=== PATIENT | female | born 1945 | race Caucasian/White ===

== ENCOUNTER 2022-05-29 08:42 | Inpatient (IN) | payer BC, MEDICAID ==
[~2022-05-29] VITALS: Ht 157.5 cm; Wt 70.3 kg
[2022-05-29] MEDS ORDERED: SODIUM CHLORIDE 0.9% 1,000 ML IV ONE (09:30)
[2022-05-29 10:26] LABS: MEAN CORPUSCULAR HEMOGLOBIN 21.1 pg (28.0-32.0); MEAN PLATELET VOLUME 7.2 fl (7.4-10.4); PLATELET 514 x1000/uL (130-400); RED BLOOD CELL COUNT 1.89 mill/uL (4.2-5.4); RED CELL DISTRIBUTION WIDTH 21.2 % (11.6-14.6)
[2022-05-29 10:33] LABS: CHLORIDE 96 mEq/L (98-107)
[2022-05-29 10:36] LABS: HEMATOCRIT. 13.4 % (36.0-48.0)
[2022-05-29 11:22] LABS: NUCLEATED RED BLOOD CELLS 4 /100 WBC; PLATELET ESTIMATE INCREASED
[2022-05-29] MEDS ORDERED: ONDANSETRON HCL 4MG/2ML INJ IV PRN (12:45)
[2022-05-29] MEDS ORDERED: CEFTRIAXONE 1 G PREMIX 50 ML IV SCH (13:00)
[2022-05-29] MEDS: SODIUM CHLORIDE 0.9% 1,000 ML IV SCH (13:11)
[2022-05-29] MEDS: ACETAMINOPHEN 325MG TABLET PO PRN ×2 (13:11→19:11)
[2022-05-29] MEDS: PANTOPRAZOLE SODIUM 40 MG/VIAL IV SCH (14:23)
[2022-05-29] MEDS ORDERED: HYDROCODONE/ACETAMINOPHEN 5/325MG TABLET PO PRN (16:47)
[2022-05-29 18:00] VITALS: BP 130/45
[2022-05-29] MEDS ORDERED: MULT-11 (18:51)
[2022-05-29] MEDS ORDERED: ATOR-2 MT (18:55)
[2022-05-29] MEDS ORDERED: ASPI-986 MT (18:55)
[2022-05-29] MEDS ORDERED: ALD2525 MT (18:55)
[2022-05-29] MEDS ORDERED: AMLO10TA80 MT (18:55)
[2022-05-29] MEDS ORDERED: CHLO50TA MT (18:55)
[2022-05-29] MEDS ORDERED: POTA-205 MT ×2 (18:55→18:58)
[2022-05-29] MEDS ORDERED: CELE-84 MT (18:55)
[2022-05-29] MEDS ORDERED: METO-396 MT (18:56)
[2022-05-29] MEDS ORDERED: CLOP75TA33 MT (18:56)
[2022-05-29 20:00] VITALS: BP 110/54
[2022-05-29 20:10] LABS: TOTAL IRON BINDING CAPACITY 481 ug/dL (250-450)
[2022-05-29 20:53] LABS: FOLIC ACID (FOLATE) SERUM > 20.00 ng/mL (>5.38); VITAMIN B12 SERUM > 2000 pg/mL (211-911)
[2022-05-29 21:08] LABS: FERRITIN < 5 ng/mL (10-291)
[2022-05-29 21:28] LABS: HEMATOCRIT 19.6 % (36.0-48.0)
[2022-05-29 22:09] VITALS: BP 111/55
[2022-05-29 22:30] VITALS: BP 110/52
[2022-05-29 23:30] VITALS: BP 117/60
[2022-05-30] VITALS: BP 117/60
[2022-05-30 00:59] LABS: CLARITY URINE CLEAR (CLEAR); COLOR URINE YELLOW (YELLOW)
[2022-05-30 01:00] LABS: KETONES URINE NEGATIVE (NEGATIVE); LEUKOCYTE ESTERASE URINE NEGATIVE (NEGATIVE); NITRITE URINE NEGATIVE (NEGATIVE); OCCULT BLOOD URINE 3+ (NEGATIVE); PROTEIN URINE NEGATIVE (NEGATIVE); UROBILINOGEN URINE 0.2 E.U./dL (0.2-1.0)
[2022-05-30 01:03] LABS: HEMATOCRIT 22.7 % (36.0-48.0); HEMOGLOBIN 7.3 g/dL (12.0-16.0)
[2022-05-30] MEDS: SODIUM CHLORIDE 0.9% 1,000 ML IV SCH ×2 (01:07→19:06)
[2022-05-30 04:00] VITALS: BP 116/50
[2022-05-30 06:34] LABS: CHLORIDE 104 mEq/L (98-107)
[2022-05-30 07:23] LABS: BASOPHILS % 0.2 % (0.0-2.0); EOSINOPHILS % 0.1 % (0.0-5.0); HEMATOCRIT. 21.5 % (36.0-48.0); LYMPHOCYTES % 9.9 % (20.0-50.0); MEAN CORPUSCULAR HEMOGLOBIN 25.4 pg (28.0-32.0); MEAN CORPUSCULAR VOLUME 78.4 fL (81.0-99.0); MEAN PLATELET VOLUME 7.8 fl (7.4-10.4); MONOCYTES % 5.4 % (2.0-8.0); NEUTROPHILS % 84.4 % (40.0-76.0); PLATELET 344 x1000/uL (130-400); RED BLOOD CELL COUNT 2.74 mill/uL (4.2-5.4); RED CELL DISTRIBUTION WIDTH 20.1 % (11.6-14.6)
[2022-05-30 08:00] VITALS: BP 117/47
[2022-05-30] MEDS ORDERED: IRON SUCROSE COMPLEX 100 MG/5 ML ML IV SCH (09:00)
[2022-05-30] MEDS: PANTOPRAZOLE SODIUM 40 MG/VIAL IV SCH (09:29)
[2022-05-30 12:00] VITALS: BP 116/42
[2022-05-30 13:12] LABS: HEMOGLOBIN 7.1 g/dL (12.0-16.0)
[2022-05-30] MEDS ORDERED: POTASSIUM CHLORIDE 20MEQ TABLET SR PO NR (13:15)
[2022-05-30] MEDS ORDERED: POTASSIUM CHLORIDE 20MEQ TABLET SR PO ONE (13:15)
[2022-05-30 16:00] VITALS: BP 130/52
[2022-05-30] MEDS: CEFTRIAXONE 1,000 MG in DEXTROSE 5% WATER 50 ML IV SCH (17:32)
[2022-05-30 18:06] LABS: HEMATOCRIT 21.6 % (36.0-48.0); HEMOGLOBIN 7.1 g/dL (12.0-16.0)
[2022-05-30 20:00] VITALS: BP 123/54
[2022-05-31] VITALS (11 sets, daily range): BP systolic 111–139; BP diastolic 37–78
[2022-05-31 00:43] LABS: HEMATOCRIT 21.1 % (36.0-48.0)
[2022-05-31 00:51] LABS: HEMOGLOBIN 6.9 g/dL (12.0-16.0)
[2022-05-31] MEDS: SODIUM CHLORIDE 0.9% 1,000 ML IV SCH (04:49)
[2022-05-31 08:05] LABS: HEMATOCRIT 20.9 % (36.0-48.0); HEMOGLOBIN 6.8 g/dL (12.0-16.0)
[2022-05-31] MEDS: PANTOPRAZOLE SODIUM 40 MG/VIAL IV SCH (08:26)
[2022-05-31] MEDS: IRON SUCROSE COMPLEX 100 MG/5 ML ML IV SCH (08:28)
[2022-05-31 16:16] LABS: HEMATOCRIT 26.3 % (36.0-48.0); HEMOGLOBIN 8.4 g/dL (12.0-16.0)
[2022-05-31] MEDS ORDERED: BISACODYL 5MG TABLET PO ONE (16:30)
[2022-05-31] MEDS ORDERED: METOCLOPRAMIDE HCL 10MG/2ML VIAL IV SCH (16:30)
[2022-05-31] MEDS ORDERED: SORBITOL 70% SOLN 30ML PO SCH ×2 (17:00→21:00)
[2022-05-31] MEDS ORDERED: BISACODYL 5MG TABLET PO SCH (20:30)
[2022-05-31] MEDS: CEFTRIAXONE 1,000 MG in DEXTROSE 5% WATER 50 ML IV SCH (21:20)
[2022-06-01] VITALS: BP 138/90
[2022-06-01 04:00] VITALS: BP 132/76
[2022-06-01 06:04] LABS: BASOPHILS % 0.8 % (0.0-2.0); EOSINOPHILS % 1.7 % (0.0-5.0); HEMATOCRIT. 35.8 % (36.0-48.0); HEMOGLOBIN. 11.9 g/dL (12.0-16.0); LYMPHOCYTES % 11.2 % (20.0-50.0); MEAN CORPUSCULAR HEMOGLOBIN 27.4 pg (28.0-32.0); MEAN CORPUSCULAR VOLUME 82.5 fL (81.0-99.0); MEAN PLATELET VOLUME 8.1 fl (7.4-10.4); MONOCYTES % 7.2 % (2.0-8.0); NEUTROPHILS % 79.1 % (40.0-76.0); PLATELET 291 x1000/uL (130-400); RED BLOOD CELL COUNT 4.34 mill/uL (4.2-5.4); RED CELL DISTRIBUTION WIDTH 19.1 % (11.6-14.6)
[2022-06-01 06:10] LABS: PROTHROMBIN TIME 10.5 sec (9.6-11.0)
[2022-06-01 06:23] LABS: CHLORIDE 108 mEq/L (98-107)
[2022-06-01] MEDS ORDERED: SORBITOL 70% SOLN 30ML PO NR (07:15)
[2022-06-01] MEDS: SODIUM CHLORIDE 0.9% 1,000 ML IV SCH ×2 (07:25→20:45)
[2022-06-01 08:00] VITALS: BP 153/60
[2022-06-01] MEDS ORDERED: POTASSIUM CHLORIDE 20MEQ TABLET SR PO SCH (08:30)
[2022-06-01] MEDS ORDERED: POTASSIUM CHLORIDE INJ 40 MEQ in DEXT 5% WATER 250 ML IV ONE (08:30)
[2022-06-01] MEDS: IRON SUCROSE COMPLEX 100 MG/5 ML ML IV SCH (09:59)
[2022-06-01] MEDS: PANTOPRAZOLE SODIUM 40 MG/VIAL IV SCH (10:00)
[2022-06-01] MEDS: KCL 20MEQ/100ML PREMIX 100 ML IV SCH ×2 (10:14→10:30)
[2022-06-01] MEDS ORDERED: SIMETHICONE 40 MG/0.6 ML 15ML ONE (10:33)
[2022-06-01 12:00] VITALS: BP 150/58
[2022-06-01] MEDS ORDERED: FENTANYL CITRATE/PF 50MCG/ML 2ML VIAL ONE (13:51)
[2022-06-01] MEDS ORDERED: PROPOFOL 200MG/20ML VIAL IV ONE ×2 (13:51→13:54)
[2022-06-01] MEDS ORDERED: LIDOCAINE HCL 2% 5ML SYRINGE IV ONE (13:57)
[2022-06-01 16:00] VITALS: BP 145/62
[2022-06-01] MEDS ORDERED: HYDR25SU37 RC (16:05)
[2022-06-01] MEDS: CEFTRIAXONE 1,000 MG in DEXTROSE 5% WATER 50 ML IV SCH (18:23)
[2022-06-01 20:00] VITALS: BP 135/58
[2022-06-01] MEDS ORDERED: NALOXONE HCL 0.4MG/ML VIAL IV PRN (23:00)
[2022-06-02] VITALS: BP 131/65
[2022-06-02 03:23] VITALS: BP 112/59
[2022-06-02 07:14] LABS: BASOPHILS % 0.7 % (0.0-2.0); HEMATOCRIT. 34.8 % (36.0-48.0); HEMOGLOBIN. 11.5 g/dL (12.0-16.0); LYMPHOCYTES % 14.1 % (20.0-50.0); MEAN CORPUSCULAR HEMOGLOBIN 27.9 pg (28.0-32.0); MEAN CORPUSCULAR VOLUME 84.3 fL (81.0-99.0); MEAN PLATELET VOLUME 7.7 fl (7.4-10.4); MONOCYTES % 8.2 % (2.0-8.0); PLATELET 267 x1000/uL (130-400); RED BLOOD CELL COUNT 4.13 mill/uL (4.2-5.4); RED CELL DISTRIBUTION WIDTH 19.1 % (11.6-14.6)
[2022-06-02 08:00] VITALS: BP 150/57
[2022-06-02 08:09] LABS: CHLORIDE 108 mEq/L (98-107)
[2022-06-02] MEDS: PANTOPRAZOLE SODIUM 40 MG/VIAL IV SCH (10:26)
[2022-06-02] MEDS: IRON SUCROSE COMPLEX 100 MG/5 ML ML IV SCH (10:26)
[2022-06-02] MEDS: SODIUM CHLORIDE 0.9% 1,000 ML IV SCH (10:28)
[2022-06-02 12:00] VITALS: BP 135/54
[2022-06-02] MEDS ORDERED: PROT40 MT (12:33)
[2022-06-02 15:49] VITALS: BP 144/60
[2022-06-02 16:00] VITALS: BP 144/64
[2022-06-02] MEDS ORDERED: SUCRALFATE 1G TABLET PO SCH (17:10)
[2022-06-02] MEDS ORDERED: PANTOPRAZOLE SODIUM 40 MG/VIAL IV SCH (21:00)
== END 2022-06-02 16:25 | disposition home or self-care (01) | DRG 377 ==
LOC: ER 08:42 → 8WST 11:03
PROVIDERS: ADMIT Internal Medicine; ATTEND Internal Medicine
PROC: 30233N1 Transfusion of Nonautologous Red Blood Cells into Peripheral Vein, Percutaneous Approach (ICD-10-PCS; 2022-05-29)
PROC: 0DB78ZX Excision of Stomach, Pylorus, Via Natural or Artificial Opening Endoscopic, Diagnostic (ICD-10-PCS; principal; 2022-06-01)
PROC: 0DBL8ZX Excision of Transverse Colon, Via Natural or Artificial Opening Endoscopic, Diagnostic (ICD-10-PCS; 2022-06-01)
PROC: 0DBN8ZX Excision of Sigmoid Colon, Via Natural or Artificial Opening Endoscopic, Diagnostic (ICD-10-PCS; 2022-06-01)
DX: K29.61 Other gastritis with bleeding (principal); E43 Unspecified severe protein-calorie malnutrition; K55.9 Vascular disorder of intestine, unspecified; I24.8 Other forms of acute ischemic heart disease; E87.1 Hypo-osmolality and hyponatremia; K63.3 Ulcer of intestine; K25.4 Chronic or unspecified gastric ulcer with hemorrhage; D50.9 Iron deficiency anemia, unspecified; I11.9 Hypertensive heart disease without heart failure; D75.839 Thrombocytosis, unspecified; Z20.822 Contact with and (suspected) exposure to COVID-19; E78.00 Pure hypercholesterolemia, unspecified; E78.5 Hyperlipidemia, unspecified; E87.8 Other disorders of electrolyte and fluid balance, not elsewhere classified; K64.4 Residual hemorrhoidal skin tags; R55 Syncope and collapse; D72.829 Elevated white blood cell count, unspecified; R73.9 Hyperglycemia, unspecified; Z88.0 Allergy status to penicillin; Z68.28 Body mass index [BMI] 28.0-28.9, adult; Z79.02 Long term (current) use of antithrombotics/antiplatelets; Z86.73 Personal history of transient ischemic attack (TIA), and cerebral infarction without residual deficits; I25.2 Old myocardial infarction; Z90.710 Acquired absence of both cervix and uterus; Z98.2 Presence of cerebrospinal fluid drainage device
CPT/HCPCS: 36415; 71045; 80048; 80053; 81003; 82270; 82607; 82728; 82746; 83540; 83550; 84132; 84484; 85014; 85018; 85025; 85044; 86850; 86900; 86920; 87426; 88305; 93005; 99291; C1893; C9113; J0696; J2405; J2704; J2765; J3010; J3480; J3490; J7030; J7060; P9016

== ENCOUNTER 2022-07-24 03:38 | Inpatient (IN) | payer BC, MEDICAID ==
[2022-07-23] MEDS: DEXT 5%/0.9% NACL 1,000 ML IV SCH (22:00)
[~2022-07-24] VITALS: Ht 157.5 cm; Wt 68.8 kg
[~2022-07-24 03:38] MED LIST: ALD2525 MT; AMLO10TA80 MT; ASPI-986 MT; ATOR-2 MT; CHLO50TA MT; HYDR25SU37 RC; METO-396 MT; MULT-11; POTA-205 MT; PROT40 MT
[2022-07-24] MEDS ORDERED: ONDANSETRON HCL 4MG/2ML INJ IV STA (05:34)
[2022-07-24] MEDS ORDERED: PANTOPRAZOLE SODIUM 40 MG/VIAL IV ONE (05:45)
[2022-07-24] MEDS ORDERED: SODIUM CHLORIDE 0.9% 1,000 ML IV ONE (05:45)
[2022-07-24 06:42] LABS: CHLORIDE 99 mEq/L (98-107)
[2022-07-24 06:44] LABS: HEMATOCRIT. 36.8 % (36.0-48.0); HEMOGLOBIN. 12.9 g/dL (12.0-16.0); MEAN CORPUSCULAR VOLUME 85.4 fL (81.0-99.0); MEAN PLATELET VOLUME 7.9 fl (7.4-10.4); PLATELET 482 x1000/uL (130-400); RED BLOOD CELL COUNT 4.31 mill/uL (4.2-5.4); RED CELL DISTRIBUTION WIDTH 18.2 % (11.6-14.6)
[2022-07-24 08:06] LABS: PROTHROMBIN TIME 11.2 sec (9.6-11.0)
[2022-07-24 08:13] LABS: PLATELET ESTIMATE NORMAL
[2022-07-24] MEDS: PANTOPRAZOLE SODIUM 40 MG/VIAL IV SCH (17:27)
[2022-07-24 18:49] LABS: HEMATOCRIT 33.4 % (36.0-48.0); HEMOGLOBIN 11.6 g/dL (12.0-16.0)
[2022-07-24 20:00] VITALS: BP 162/70
[2022-07-24] MEDS ORDERED: HYDROCORTISONE ACETATE 25MG SUPP PR PRN (21:00)
[2022-07-24] MEDS: ATORVASTATIN CALCIUM 40MG TABLET PO SCH (21:45)
[2022-07-24] MEDS: SUCRALFATE 1 G/10 ML UDC PO SCH (21:45)
[2022-07-24 22:00] VITALS: BP 131/76
[2022-07-25] VITALS: BP 147/69
[2022-07-25] MEDS ORDERED: ESCI-7 PO (01:12)
[2022-07-25 01:40] LABS: HEMATOCRIT 32.3 % (36.0-48.0); HEMOGLOBIN 11.2 g/dL (12.0-16.0)
[2022-07-25 04:00] VITALS: BP 137/63
[2022-07-25] MEDS: PANTOPRAZOLE SODIUM 40 MG/VIAL IV SCH ×2 (05:08→17:06)
[2022-07-25 05:42] LABS: CHLORIDE 100 mEq/L (98-107)
[2022-07-25 05:55] LABS: BASOPHILS % 0.8 % (0.0-2.0); EOSINOPHILS % 1.3 % (0.0-5.0); HEMATOCRIT. 31.8 % (36.0-48.0); HEMOGLOBIN. 10.6 g/dL (12.0-16.0); LYMPHOCYTES % 16.9 % (20.0-50.0); MEAN CORPUSCULAR HEMOGLOBIN 29.3 pg (28.0-32.0); MEAN CORPUSCULAR VOLUME 87.6 fL (81.0-99.0); MEAN PLATELET VOLUME 7.4 fl (7.4-10.4); MONOCYTES % 8.2 % (2.0-8.0); NEUTROPHILS % 72.8 % (40.0-76.0); PLATELET 322 x1000/uL (130-400); RED BLOOD CELL COUNT 3.64 mill/uL (4.2-5.4); RED CELL DISTRIBUTION WIDTH 17.7 % (11.6-14.6)
[2022-07-25 08:00] VITALS: BP 114/42
[2022-07-25] MEDS: KCL 20MEQ/100ML PREMIX 100 ML IV NR ×2 (08:47→11:11)
[2022-07-25] MEDS: CITALOPRAM HYDROBROMIDE 10MG TABLET PO SCH (08:53)
[2022-07-25] MEDS: POTASSIUM CHLORIDE 20MEQ TABLET SR PO SCH (08:55)
[2022-07-25] MEDS: METOPROLOL SUCCINATE 50MG ER TABLET PO SCH (08:55)
[2022-07-25] MEDS: ATORVASTATIN CALCIUM 40MG TABLET PO SCH (08:56)
[2022-07-25] MEDS: AMLODIPINE 10MG TABLET PO SCH (08:56)
[2022-07-25] MEDS: SPIRONOLACTONE 25MG TABLET PO SCH (08:57)
[2022-07-25] MEDS: SUCRALFATE 1 G/10 ML UDC PO SCH ×4 (09:00→21:30)
[2022-07-25] MEDS: CHLORTHALIDONE 25MG TABLET PO SCH (09:05)
[2022-07-25 12:00] VITALS: BP 126/56
[2022-07-25 12:32] LABS: HEMATOCRIT 32.6 % (36.0-48.0); HEMOGLOBIN 10.9 g/dL (12.0-16.0)
[2022-07-25] MEDS: DEXT 5%/0.9% NACL 1,000 ML IV SCH (12:54)
[2022-07-25 16:00] VITALS: BP 132/64
[2022-07-25 18:22] LABS: HEMOGLOBIN 10.7 g/dL (12.0-16.0)
[2022-07-25 20:00] VITALS: BP 141/67
[2022-07-26] VITALS: BP 129/55
[2022-07-26 04:00] VITALS: BP 123/59
[2022-07-26] MEDS: PANTOPRAZOLE SODIUM 40 MG/VIAL IV SCH ×2 (06:40→17:38)
[2022-07-26 08:00] VITALS: BP 133/60
[2022-07-26 08:23] LABS: BASOPHILS % 0.6 % (0.0-2.0); EOSINOPHILS % 1.8 % (0.0-5.0); HEMOGLOBIN. 10.8 g/dL (12.0-16.0); LYMPHOCYTES % 14.7 % (20.0-50.0); MEAN CORPUSCULAR HEMOGLOBIN 30.4 pg (28.0-32.0); MEAN CORPUSCULAR VOLUME 87.5 fL (81.0-99.0); MEAN PLATELET VOLUME 7.6 fl (7.4-10.4); MONOCYTES % 8.1 % (2.0-8.0); NEUTROPHILS % 74.8 % (40.0-76.0); PLATELET 313 x1000/uL (130-400); RED BLOOD CELL COUNT 3.54 mill/uL (4.2-5.4); RED CELL DISTRIBUTION WIDTH 16.7 % (11.6-14.6)
[2022-07-26 08:29] LABS: CHLORIDE 97 mEq/L (98-107)
[2022-07-26] MEDS: SUCRALFATE 1 G/10 ML UDC PO SCH ×3 (08:56→18:09)
[2022-07-26] MEDS: POTASSIUM CHLORIDE 20MEQ TABLET SR PO SCH (08:56)
[2022-07-26] MEDS: CITALOPRAM HYDROBROMIDE 10MG TABLET PO SCH (08:56)
[2022-07-26] MEDS: SPIRONOLACTONE 25MG TABLET PO SCH (08:57)
[2022-07-26] MEDS: CHLORTHALIDONE 25MG TABLET PO SCH (08:57)
[2022-07-26] MEDS: ATORVASTATIN CALCIUM 40MG TABLET PO SCH (09:06)
[2022-07-26] MEDS: METOPROLOL SUCCINATE 50MG ER TABLET PO SCH (09:07)
[2022-07-26] MEDS: AMLODIPINE 10MG TABLET PO SCH (09:07)
[2022-07-26 12:00] VITALS: BP_SYST 129; BP_DIAS 59; BP_DIAS 63
[2022-07-26 16:00] VITALS: BP_SYST 125; BP_SYST 164; BP_DIAS 59; BP_DIAS 63
[2022-07-26 19:54] VITALS: BP 132/57
== END 2022-07-26 21:10 | disposition home or self-care (01) | DRG 394 ==
LOC: ER 03:38 → 7WST 16:31 → EDBEDREQ 16:40 → EDBEDREQTM 16:40
PROVIDERS: ADMIT Internal Medicine; ATTEND Internal Medicine
DX: K64.4 Residual hemorrhoidal skin tags (principal); E44.1 Mild protein-calorie malnutrition; R65.10 Systemic inflammatory response syndrome (SIRS) of non-infectious origin without acute organ dysfunction; K62.6 Ulcer of anus and rectum; E78.00 Pure hypercholesterolemia, unspecified; F32.9 Major depressive disorder, single episode, unspecified; K64.8 Other hemorrhoids; I25.2 Old myocardial infarction; D64.9 Anemia, unspecified; Z86.73 Personal history of transient ischemic attack (TIA), and cerebral infarction without residual deficits; Z98.2 Presence of cerebrospinal fluid drainage device; Z68.27 Body mass index [BMI] 27.0-27.9, adult; Z88.0 Allergy status to penicillin
CPT/HCPCS: 36415; 71045; 74176; 80048; 80053; 80076; 83605; 85014; 85018; 85025; 86850; 86900; 93005; 99285; C9113; J2405; J3480; J7030